=== PATIENT | male | born 2000 | race Caucasian/White ===

== ENCOUNTER → 2022-01-31 | Outpatient (CLI) | payer OTHER, SELFPAY ==
[2022-01-31 15:45] LABS: Absolute Lymphocyte Count 3.52 X10^3/uL (0.83-4.51); Absolute Neutrophil Count 4.1 X10^3/uL (2.0-7.7); Basophil# 0.06 X10^3/uL; Basophil% 0.7 % (0-1); Eosinophil# 0.17 X10^3/uL; Hematocrit 45.3 % (40-54); Hemoglobin 15.8 g/dL (13.0-16.5); Lymphocyte # 3.52 X10^3/ul (0.83-4.51); Lymphocyte % 41.7 % (19-41); Mean Corp Hgb Conc 34.9 g/dL (32-36); Mean Corpuscular Hgb 28.5 pg (27.0-32.0); Mean Corpuscular Volume 81.8 fL (80-94); Mean Platelet Vol. 11.5 fl (6.2-12.0); Monocyte# 0.63 X10^3/uL; Monocyte% 7.5 % (0-10); NRBC Flagged by Analyzer 0 % (0-5); Neutrophil # 4.05 X10^3/uL (2.7-7.7); Neutrophil % 47.9 % (47-70); Platelet Count 215 K/mm3 (150-450); RBC Distribution Width CV 12.7 % (11.6-14.6); RBC Distribution Width SD 37.6 fl (35.1-43.9); Red Blood Count 5.54 M/mm3 (4.6-6.2); White Blood Count 8.5 K/mm3 (4.4-11.0)
[2022-01-31 16:01] LABS: ALB/GLOB Ratio 1.2 RATIO (0.9-2.4); AST(SGOT) 16 U/L (15-37); Alanine Aminotransfer ALT/SGPT 25 U/L (16-61); Albumin, Serum 4.1 g/dL (3.2-5.0); Alkaline Phosphatase 60 U/L (45-117); Anion Gap 6 (5-15); BUN 13 mg/dL (7-18); BUN/Creat Ratio 13.4 RATIO (10-20); Calcium,Total 9.1 mg/dL (8.5-10.1); Chloride 105 mmol/L (98-107); Creatinine, Serum 0.97 mg/dL (0.70-1.30); EST Glomerular Filtration Rate 102 mL/min (>60); Est Glom Filt Rate - Afr Amer 124 mL/min (>60); Globulin 3.5 g/dL (2.2-4.2); Glucose 110 mg/dL (74-106); Potassium 4.2 mmol/L (3.5-5.1); Protein, Total 7.6 g/dL (6.4-8.2); Sodium Level 139 mmol/L (136-145)
== END | disposition home or self-care (01) ==
LOC: MFPLAB 11:24
PROVIDERS: Visit Provider Family Medicine
DX: R19.5 Other fecal abnormalities (principal)
CPT/HCPCS: 36415; 80053; 85025

== ENCOUNTER → 2022-05-06 | Outpatient (CLI) | payer OTHER, SELFPAY ==
--- NOTE | 2022-05-06 16:00 | CT_ITS ---
STUDY: CTA OF THE ABDOMINAL AORTA REASON FOR EXAM: Male, 21 years old. Rectal bleeding. RADIATION DOSAGE (If Supplied By Facility): CTDIvol = ( 14.98 ) mGy, DLP = ( 1138.08 ) mGycm TECHNIQUE: Axial CT angiography multi-detector data acquisition was obtained from the diaphragm to the ischial tuberosity following intravenous administration of 100ML OF ISOVUE 370. Axial images and MIP images were reconstructed from the axial data set. Post-processing of the angiographic images was performed, with multiplanar reformation and 3D reconstruction. Individualized dose optimization techniques were used for this CT. TECHNICAL QUALITY: Good COMPARISON: None. Descriptors of Narrowing: None (0%) Mild (< 50%) Moderate (50-70%) Severe (70-90%) Subtotal/Total Occlusion (90-100%) Non-Evaluable (technically non-diagnostic FINDINGS: Abdominal aorta: No demonstrated narrowing. Celiac and superior mesenteric arteries: No demonstrated narrowing. Inferior mesenteric artery: No demonstrated narrowing. Right renal artery(arteries): No demonstrated narrowing. Left renal artery(arteries): No demonstrated narrowing. Right common iliac artery: No demonstrated narrowing. Right external iliac artery: No demonstrated narrowing. Right internal iliac artery: No demonstrated narrowing. Left common iliac artery: No demonstrated narrowing. Left external iliac artery: No demonstrated narrowing. Left internal iliac artery: No demonstrated narrowing. Lung bases are clear. The heart is normal in size. Normal liver. Normal gallbladder and biliary ductal system. Normal spleen. Normal pancreas. Normal adrenal glands. Normal kidneys. Normal visualized ureters. Normal IVC and retroperitoneum. Normal stomach. Normal small bowel. Normal colon. Normal appendix. There is no visualized extravasation of contrast in the bowel lumen suggest active GI bleed. Normal urinary bladder. Normal prostate. No pelvic lymphadenopathy. No free air or free fluid is seen within the peritoneal cavity. Normal abdominal wall. Normal osseous structures. CT/CT ANGIO ABD&PEL W/O&W/DYE IMPRESSION: 1. Normal abdominal aorta and intra-abdominal vasculature. 2. No evidence of active GI bleed or other gross GI abnormality. Electronically Signed: Ivan Perkins DO at 22:17 EDT Reading Location ID and State: [address] [place] [address] Tel [phone], Service support ,
== END | disposition home or self-care (01) ==
LOC: CT 15:44
PROVIDERS: PCP Family Medicine; Referring Provider Internal Medicine Gastroenterology; Visit Provider Internal Medicine Gastroenterology
DX: K62.5 Hemorrhage of anus and rectum (principal)
CPT/HCPCS: 74174; Q9967

== ENCOUNTER 2022-06-24 05:25 | Day surgery (SDC) | payer OTHER, SELFPAY ==
--- NOTE | 2022-06-24 | COLBX_PTH ---
PATIENT: BRIAN MACHADO LOC: EN U#:[id number] AGE/SX: 21/M ROOM: RE06/24/[address]: Dr. Miguel Gomez DO : 2000 BED: DIS: 06/24/2022 SPEC #: [id number] RECD: 06/24/22 11:56 STATUS: NATALIE REYesenia #: [id number] YENY: 06/24/22 00:[address]: Miguel Gomez DEPT: SURGICAL PATHOLOGY RECD BY: Bladimir Bingham ENTERED: 06/24/22 11:57 SP TYPE: COLON BX OTHR DR: Dr. Darin Clarke MD Tissues: A - Ileum, NOS B - COLON BIOPSY Procedures: Surgery Specimen Level IV HEADER OPERATION: Colonoscopy PRE-OP DIAGNOSIS: Bright red blood per rectum TISSUE SUBMITTED: A ? Terminal ileum biopsy, B ? Random colon biopsies MICROSCOPIC DIAGNOSIS A. Terminal ileum, biopsy: Fragments of small intestinal mucosa, no pathologic diagnosis. B. Colon, random biopsy: Focal minimal acute colitis. See comment. TR:portillo 06/25/2022 COMMENT B. Focal minimal cryptitis is noted. Crypt abscesses, glandular distortion or granulomas are not seen. Correlation with clinical, radiologic findings and appropriate follow up are necessary. MICROSCOPIC DESCRIPTION Slides are reviewed. GROSS DESCRIPTION A - Received in fixative is one container labeled with the patient's name and designated terminal ileum biopsy. The specimen consists of multiple irregular fragments of light argueta soft tissue that in aggregate measure 0.8 x 0.4 x 0.1 cm. The specimen is totally submitted in one cassette. B - Received in fixative is one container labeled with the patient's name and designated random colon biopsy. The specimen consists of multiple irregular fragments of light argueta soft tissue that in aggregate measure 2 x 0.5 x 0.1 cm. The specimen is totally submitted in one cassette. / TR:portillo 06/24/2022 TC:2 CPT: 94091 x2
[2022-06-24] MEDS: Lactated Ringers 1,000 ML 15 ML IV (05:45)
[2022-06-24 06:02] VITALS: BP 146/85; PULSE 79; RESP 17; TEMP 37.5; O2SAT 99; BMI 33.3
--- NOTE | 2022-06-24 06:36 | PCM.HP.BLA ---
History and Physical Date of Admission: 06/24/22 WILL MACAHDO, is a 21 M who presents to the office today for Initial consult. Will established with this clinic 04.24.22 with referral from PCP for blood in stool. First seen June 2021 with three subsequent episodes each occurring in a singular fashion. [place] stool scale 4. Denies abdominal pain, burning, regurgitation, nausea, bloating or emesis. ? FH does not include UC or Crohn?s disease, or colon cancer. Biochemical workup - without any pertinent abnormalities Denies any other symptoms with the blood in stool. Denies any changes in bowel movements. States that he has had one previous episode of rectal bleeding in 2018. Denies any PMH of GI related illness. Denies ever getting a colonoscopy. ROS Const Constitutional: No fatigue, fever(s), frequent falls, headache(s) or weight change ENT ENT: No headache(s) or difficulty swallowing Cardio Cardiology: No leg pain with exertion Gastro GI: Positive for Blood in stool; No abdominal pain, bloating, change in bowel habits, constipation, diarrhea, heartburn, difficulty swallowing, Vomiting blood/hematemesis, nausea/dyspepsia or vomiting Musc Musculoskeletal: No abnormal gait, joint pain, back pain, joint swelling, muscle cramps, muscle weakness, numbness, stiffness, tingling, Arthritis, sciatica, leg pain at night or leg pain with exertion Skin Skin: No dry skin, lesions, itchy eyes or rash Neuro Neurology: No abnormal gait, dizziness, frequent falls, headache(s), numbness, tingling, tremor(s), Increased tone in limbs, paralysis or seizures Psych Psychiatric: No anxiety, No depression, No paranoia, No Behavioral Problems, No Compulsive Behavior, No hyperactivity, No inattentiveness, No obsessions/compulsions, Positive for Temper Tantrums and No suicidal ideation Endo Endocrine: No fatigue or weight change Aller/Imm Allergy/Immunologic: No itchy eyes Bautista/Lymp Hematologic/Lymphatic: No easy bleeding or easy bruising Exam Const General: cooperative and comfortable Nutritional Appearance: average body habitus and well nourished HENOK Head: normal to inspection Ears: hearing grossly normal bilaterally Nose: external nose normal Face and sinus: normal facial exam Mouth: oral mucosae normal Throat: posterior oropharynx normal Eyes General: appearance normal, both eyes and all related structures Neck Neck: normal visual inspection Chest Chest palpation & inspection: normal inspection of the chest and normal palpation of entire chest wall Resp Effort & Inspection: normal respiratory effort Auscultation: Bilateral: Clear to Auscultation Cardio Palpation: normal PMI Rate: regular rate Rhythm: regular rhythm GI Inspection: normal to inspection Auscultation: normal bowel sounds Percussion: normal to percussion Palpation: no hepatosplenomegaly Skin General: no rashes or lesions noted Neuro General: patient alert Extrem General: normal to inspection Psych Affect: normal affect Quality Reporting Tobacco Screening ([facility] 138) Smoking Status: Never smoker Assessment and Plan Assessment and Plan (1) Bright red blood per rectum: ?Status:?Acute ?Plan: He has dilated rectal veins and varicose veins.? It makes me think about?lower extremity venous diseases or insufficiency include clinically deteriorating conditions with morphological and functional alterations of the venous system, including venous hypertension, vascular wall structural abnormality, and venous valvar incompetency in association with an inflammatory process.? We will perform a colonoscopy to evaluate his rectal Schmid with endoscopy for the etiology of his bleeding.? We will also get a CT angio of the abdomen pelvis to look for signs of angiodysplasia that can be contributing to venous insufficiency. ? ? ? Orders: Orders CT ANGIO ABD&PEL W/O&W/DYE Today K62.5 - Hemorrhage of anus and rectum ? I have examined the patient and the H&P has been reviewed. There are no clinical changes since date of exam.
[2022-06-24 07:00] VITALS: BP 146/85; BP 95/55; PULSE 61; RESP 16; TEMP 36.7; O2SAT 94
--- NOTE | 2022-06-24 07:03 | OP.COLON_ITS ---
Patient Name: Will Garrison Procedure Date: 06/24/2022 6:05 AM Date of : 2000 Age: 21 Procedure: Colonoscopy Indications: Hematochezia Providers: DO Shonda Stewart MD: Darin Clarke Medicines: Monitored Anesthesia Care Patient Profile: This is a 21 year old male. Refer to note in patient chart for documentation of history and physical. Last Colonoscopy: none. The patient's first colonoscopy is today. Complications: No immediate complications. Procedure: Pre-Anesthesia Assessment: - Prior to the procedure, a History and Physical was performed, and patient medications and allergies were reviewed. The risks and benefits of the procedure and the sedation options and risks were discussed with the patient. All questions were answered and informed consent was obtained. Patient identification and proposed procedure were verified by the physician in the pre-procedure area. Mental Status Examination: alert and oriented. Airway Examination: normal oropharyngeal airway and neck mobility. Respiratory Examination: clear to auscultation. CV Examination: normal. Prophylactic Antibiotics: The patient does not require prophylactic antibiotics. Prior Anticoagulants: The patient has taken no previous anticoagulant or antiplatelet agents. After reviewing the risks and benefits, the patient was deemed in satisfactory condition to undergo the procedure. The anesthesia plan was to use monitored anesthesia care (MAC). Immediately prior to administration of medications, the patient was re-assessed for adequacy to receive sedatives. The heart rate, respiratory rate, oxygen saturations, blood pressure, adequacy of pulmonary ventilation, and response to care were monitored throughout the procedure. The physical status of the patient was re-assessed after the procedure. After I obtained informed consent, the scope was passed under direct vision. Throughout the procedure, the patient's blood pressure, pulse, and oxygen saturations were monitored continuously. The colonoscope was introduced through the anus and advanced to the terminal ileum. The colonoscopy was performed without difficulty. The patient tolerated the procedure well. The quality of the bowel preparation was good. Scope In: 6:41:27 AM Scope Withdrawal Time 0 hours 11 minutes 18 seconds Scope Out: 6:55:50 AM Total Procedure Duration Time 0 hours 14 minutes 23 seconds Findings: An anal fissure was found on perianal exam. An area of mildly congested mucosa was found in the rectum, in the sigmoid colon and at the hepatic flexure. Biopsies were taken with a cold forceps for histology. Verification of patient identification for the specimen was done. Estimated blood loss was minimal. The terminal ileum appeared normal. Biopsies were taken with a cold forceps for histology. Verification of patient identification for the specimen was done. Estimated blood loss was minimal. Impression: - Anal fissure found on perianal exam. - Congested mucosa in the rectum, in the sigmoid colon and at the hepatic flexure. Biopsied. - The examined portion of the ileum was normal. Biopsied. Recommendation: - Discharge patient to home. - Resume previous diet. - Continue present medications. - Await pathology results. - Repeat colonoscopy for surveillance based on pathology results. - Use hydrocortisone suppository 25 mg 1 per rectum once a day for 3 weeks. Procedure Code(s): --- Professional --- 12467, Colonoscopy, flexible; with biopsy, single or multiple CPT copyright 2017 [employer]. All rights reserved. The codes documented in this report are preliminary and upon harp maker review may be revised to meet current compliance requirements. Miguel Gomez DO 06/24/2022 7:03:00 AM This report has been signed electronically. Number of Addenda: 0 Note Initiated On: 06/24/2022 6:05 AM
--- NOTE | 2022-06-24 07:04 | OP.CCLET_ITS ---
06/24/2022 Darin Clarke [address] [place] [address] Re : Colonoscopy procedure for Will Barbozakellie Dear Dr. Clarke This procedure was performed on Friday, June 24, 2022. My impressions and recommendations are as follows: Impressions : - Anal fissure found on perianal exam. - Congested mucosa in the rectum, in the sigmoid colon and at the hepatic flexure. Biopsied. - The examined portion of the ileum was normal. Biopsied. Recommendations : - Discharge patient to home. - Resume previous diet. - Continue present medications. - Await pathology results. - Repeat colonoscopy for surveillance based on pathology results. - Use hydrocortisone suppository 25 mg 1 per rectum once a day for 3 weeks. My findings are described in the full procedure note, which is enclosed. If I can be of further assistance, please feel free to contact me at . Sincerely, Miguel Gomez, 06/24/2022 7:03:00 AM This report has been signed electronically.
[2022-06-24 07:05] VITALS: BP 146/85; BP 94/83; PULSE 57; RESP 16; O2SAT 98
[2022-06-24 07:10] VITALS: BP 103/51; BP 146/85; PULSE 60; RESP 16; O2SAT 99
[2022-06-24 07:15] VITALS: BP 102/60; BP 146/85; PULSE 60; RESP 16; TEMP 37.1; O2SAT 99
[2022-06-24 07:33] VITALS: BP 146/85
== END 2022-06-24 07:43 | disposition home or self-care (01) ==
LOC: EN 05:25 → AC 05:27
PROVIDERS: PCP Family Medicine; Referring Provider Family Medicine; Visit Provider Internal Medicine Gastroenterology
PROC: 0DJD8ZZ Inspection of Lower Intestinal Tract, Via Natural or Artificial Opening Endoscopic (ICD-10-PCS; CPT 45378; principal; 2022-06-24 06:25)
DX: K52.9 Noninfective gastroenteritis and colitis, unspecified (principal); K60.2 Anal fissure, unspecified
CPT/HCPCS: 45380; 88305; J7120; J2405

== ENCOUNTER → 2022-06-30 | Outpatient (CLI) | payer OTHER, SELFPAY ==
[2022-06-30 13:59] LABS: Erythrocyte Sedimentation Rate 6 mm/hr (0-20)
[2022-06-30 14:01] LABS: Absolute Lymphocyte Count 2.24 X10^3/uL (0.83-4.51); Absolute Neutrophil Count 5.3 X10^3/uL (2.0-7.7); Basophil# 0.06 X10^3/uL; Basophil% 0.7 % (0-1); Eosinophil# 0.13 X10^3/uL; Eosinophils% 1.5 % (0-5); Hemoglobin 16.7 g/dL (13.0-16.5); Lymphocyte # 2.24 X10^3/ul (0.83-4.51); Lymphocyte % 26.3 % (19-41); Mean Corp Hgb Conc 34.8 g/dL (32-36); Mean Corpuscular Volume 80.4 fL (80-94); Mean Platelet Vol. 11.2 fl (6.2-12.0); Monocyte# 0.77 X10^3/uL; NRBC Flagged by Analyzer 0 % (0-5); Neutrophil # 5.26 X10^3/uL (2.7-7.7); Neutrophil % 61.9 % (47-70); Platelet Count 225 K/mm3 (150-450); RBC Distribution Width CV 12.4 % (11.6-14.6); RBC Distribution Width SD 35.7 fl (35.1-43.9); Red Blood Count 5.97 M/mm3 (4.6-6.2); White Blood Count 8.5 K/mm3 (4.4-11.0)
[2022-06-30 14:27] LABS: AST(SGOT) 9 U/L (15-37); Alanine Aminotransfer ALT/SGPT 26 U/L (16-61); Albumin, Serum 4.2 g/dL (3.2-5.0); Alkaline Phosphatase 63 U/L (45-117); Anion Gap 7 (5-15); BUN 10 mg/dL (7-18); BUN/Creat Ratio 10.4 RATIO (10-20); CRP < 2.90 mg/L (0.0-3.0); Calcium,Total 9.6 mg/dL (8.5-10.1); Chloride 106 mmol/L (98-107); Creatinine, Serum 0.96 mg/dL (0.70-1.30); EST Glomerular Filtration Rate 103 mL/min (>60); Est Glom Filt Rate - Afr Amer 125 mL/min (>60); Glucose 95 mg/dL (74-106); LDH 151 U/L (87-241); Potassium 4.1 mmol/L (3.5-5.1); Protein, Total 8.2 g/dL (6.4-8.2); Sodium Level 140 mmol/L (136-145)
[2022-07-02 15:08] LABS: Anti-Centromere B Ab <0.2 AI (0.0-0.9); Anti-Chromatin <0.2 AI (0.0-0.9); Anti-Jo <0.2 AI (0.0-0.9); Anti-Scleroderma-70 AB <0.2 AI (0.0-0.9); Endomysial Antibody IgA Negative (Negative); RNP Ab <0.2 AI (0.0-0.9); SJOGREN'S Anti-SS-A test < 0.2 AI (0.0-0.9); SJOGREN'S Anti-SS-B test < 0.2 AI (0.0-0.9); Smith Ab <0.2 AI (0.0-0.9)
[2022-07-02 16:23] LABS: Anti-dsDNA Ab 2 IU/mL (0-9); Immunoglobulin A 349 mg/dL (90-386); t-Transglutaminase IgA <2 U/mL (0-3)
[2022-07-04 10:29] LABS: Calprotectin, Stool <16 ug/g (0-120)
[2022-07-05 10:08] LABS: Albumin 4.6 g/dL (2.9-4.4); Alpha-1-Globulins 0.2 g/dL (0.0-0.4); Alpha-2-Globulins 0.5 g/dL (0.4-1.0); Cytoplasmic Ab (C-ANCA) <1:20 titer (Neg:<1:20); Gamma Globulin 1.3 g/dL (0.4-1.8); Immunoglobulin A 326 mg/dL (90-386); Immunoglobulin E 81 IU/mL (6-495); Immunoglobulin G 1150 mg/dL (603-1613); Immunoglobulin M 126 mg/dL (20-172); PROEL- TOTAL PROTEIN 7.8 g/dL (6.0-8.5)
[2022-07-08 11:48] LABS: Perinuclear Ab (P-ANCA) <1:20 titer (Neg:<1:20)
== END | disposition home or self-care (01) ==
PROVIDERS: PCP Family Medicine; Referring Provider Internal Medicine Gastroenterology; Visit Provider Internal Medicine Gastroenterology
DX: K52.9 Noninfective gastroenteritis and colitis, unspecified (principal)
CPT/HCPCS: 36415; 80053; 82784; 82785; 83516; 83615; 83630; 83993; 84165; 85025; 85652; 86140; 86225; 86235; 86255; 86256; 86334

== ENCOUNTER 2022-08-19 12:26 | Emergency (ER) | payer OTHER, SELFPAY ==
[2022-08-19 12:27] VITALS: BP 136/76; PULSE 92; RESP 16; TEMP 36.4; O2SAT 98; BMI 34.4
--- NOTE | 2022-08-19 13:54 | CT_ITS ---
STUDY: CT BRAIN WITHOUT CONTRAST REASON FOR EXAM: Male, 22 years old. Headache RADIATION DOSAGE (If Supplied By Facility): CTDIvol = ( 44.99 ) mGy, DLP = ( 782.05 ) mGycm TECHNIQUE: Transaxial CT imaging of the brain was performed without administration of intravenous contrast material. Individualized dose optimization techniques were used for this CT. COMPARISON: No relevant priors. FINDINGS: Normal soft tissue structures. Normal calvarium. Normal size ventricles and extra-axial spaces for the patient''s age. Normal white matter tracts of the cerebral hemispheres. Normal basal ganglia and thalami. Normal brainstem. Normal cerebellum. There is no intracranial hemorrhage. There are no findings of an acute ischemic infarction. Minimal mucosal thickening along the inferior aspect of the left maxillary sinus. CT/Brain/Head without Contrast IMPRESSION: Normal unenhanced CT scan of the brain. Electronically Signed: Francesco Mtz MD at 14:40 EST ,
[2022-08-19] MEDS: Metoclopramide 10 MG/2 ML Vial IV (14:15)
[2022-08-19] MEDS: DiphenhydrAMINE 50 MG/ML Syringe 25 MG IV (14:15)
[2022-08-19 14:32] LABS: Absolute Lymphocyte Count 1.66 X10^3/uL (0.83-4.51); Basophil# 0.05 X10^3/uL; Basophil% 0.4 % (0-1); Eosinophil# 0.11 X10^3/uL; Eosinophils% 0.9 % (0-5); Hematocrit 51.1 % (40-54); Hemoglobin 17.6 g/dL (13.0-16.5); Lymphocyte # 1.66 X10^3/ul (0.83-4.51); Mean Corp Hgb Conc 34.4 g/dL (32-36); Mean Corpuscular Hgb 27.8 pg (27.0-32.0); Mean Corpuscular Volume 80.9 fL (80-94); Mean Platelet Vol. 10.3 fl (6.2-12.0); Monocyte# 0.94 X10^3/uL; Monocyte% 7.9 % (0-10); NRBC Flagged by Analyzer 0 % (0-5); Neutrophil # 9.03 X10^3/uL (2.7-7.7); Neutrophil % 76.2 % (47-70); Platelet Count 276 K/mm3 (150-450); RBC Distribution Width CV 12.3 % (11.6-14.6); RBC Distribution Width SD 35.7 fl (35.1-43.9); Red Blood Count 6.32 M/mm3 (4.6-6.2); White Blood Count 11.9 K/mm3 (4.4-11.0)
[2022-08-19 14:43] LABS: ALB/GLOB Ratio 0.8 RATIO (0.9-2.4); AST(SGOT) 9 U/L (15-37); Alanine Aminotransfer ALT/SGPT 28 U/L (16-61); Albumin, Serum 3.9 g/dL (3.2-5.0); Alkaline Phosphatase 65 U/L (45-117); Anion Gap 9 (5-15); BUN 21 mg/dL (7-18); BUN/Creat Ratio 20.6 RATIO (10-20); Calcium,Total 9.4 mg/dL (8.5-10.1); Chloride 105 mmol/L (98-107); Creatinine, Serum 1.02 mg/dL (0.70-1.30); EST Glomerular Filtration Rate 96 mL/min (>60); Est Glom Filt Rate - Afr Amer 116 mL/min (>60); Estimated Creatinine Clearance 112.63 ml/min; Globulin 4.6 g/dL (2.2-4.2); Glucose 93 mg/dL (74-106); Potassium 4.2 mmol/L (3.5-5.1); Protein, Total 8.5 g/dL (6.4-8.2); Sodium Level 140 mmol/L (136-145)
--- NOTE | 2022-08-19 14:58 | EDS_ITS ---
HPI History of Present Illness Chief Complaint: Numb/Ting Informant: patient Onset/Context/Timing Onset: Today Context: Sudden Onset Timing: Intermittent Quality: Tingling Location: Right forearm and hand Worsened by: Nothing Relieved by: Nothing Narrative Narrative: Please ask with paresthesias to his right arm and right side of his face that began today. Patient states that these have been intermittent. Patient states that it started in his right forearm and hand. Patient states that that resolved and then he noted paresthesias on the right side of his face. Patient states those resolved after several minutes and he noted some paresthesias in his right thumb again. Patient denies any paresthesias of his right leg. Patient admits to a dull headache. Patient states his headache is worse with flashes of light. Patient states nothing seems to help with his headache or his paresthesias. Patient did have vein surgery on his right leg 6 days ago. Patient denies any fevers or chills. Patient denies any chest pain or shortness of breath. [facility] Medical History Alcohol use Blood in stool History of edema History of GI bleed Non-smoker Positive fecal occult blood test Varicose vein of leg Home Medications Hydrocortisone 2.5%/lidocaine 5% suppository (cmpd) (hydrocortisone 2.5%/lidocaine 5% suppository (compound)) #42 ea 06/25/22 [Rx Last Taken Unknown] Allergy/AdvReac Type Severity Reaction Status Date / Time No Known Allergies Allergy Verified 08/19/22 12:27 Family History (System 07/10/22 @ 13:26 by Julia Mai) Grandmother Breast cancer Father Anxiety Sister Anxiety Grandfather Arthritis Cancer Surgical History History of tonsillectomy Hx of wisdom tooth extraction Social History Smoking Status: Never smoker alcohol intake: current alcohol intake frequency: a few times a week Alcohol type: beer, wine and hard liquor substance use type: does not use caffeine: Yes Type: carbonated beverages what type of physical activity do you participate in: none ROS ROS ED Constitutional Constitutional ED: Denies chills or fever(s) Eyes Eyes: Denies blurry vision or change in vision ENT ENT ED: Denies rhinorrhea or sore throat Cardiovascular Cardiovascular: Denies chest pain or palpitations Respiratory/Chest Respiratory/Chest: Denies cough or dyspnea Gastrointestinal Gastrointestinal: Reports nausea; Denies vomiting Genitourinary Genitourinary ED: Reports urinary frequency; Denies dysuria or hematuria Musculoskeletal Musculoskeletal: Denies back pain or neck pain Integumentary Denies abscess or rash Neurologic Neurologic: Reports headache(s); Denies weakness Allergic/Immunologic Allergic/Immunologic ED: Denies mouth swelling or urticaria EXAM Physical Exam Const Vital Signs: 08/19/22 12:27 Temperature 97.6 F L Temperature Source Temporal Pulse Rate 92 Respiratory Rate 16 Blood Pressure 136/76 H Blood Pressure Mean 96 Pulse Ox 98 Oxygen Delivery Method Room Air Positive well nourished and well developed General Appearance ED: well developed HEENT Reports moist mucous membranes Neck supple and no JVD Resp normal respiratory effort and clear to auscultation bilaterally Cardio regular rate, regular rhythm and no murmurs GI normal to inspection, nondistended, normoactive bowel sounds and non-tender Palpation: soft Extremity normal to inspection General Extremety ED: Negative for edema or tenderness General Extremity: Negative for edema Neuro oriented x3, CN's II-XII intact bilaterally and no sensory deficits noted Sensorium / Orientation: alert Motor Exam: strength 5/5 throughout Psych mental status grossly normal Skin no rashes or lesions noted MDM MDM MDM Narrative Medical decision making narrative: Patient was given Reglan and Benadryl here. CBC was obtained and was reviewed. There is a mild leukocytosis of 11.9. Hemoglobin was slightly elevated at 17.6. The remainder is within normal limits. Comprehensive metabolic profile was obtained. BUN was minimally elevated at 21. Creatinine was normal. Electrolytes were normal. Anion gap was normal. Liver function tests were normal. CT scan of the brain was obtained. There is no acute intracranial abnormality. This was interpreted by the radiologist. This was also independently reviewed by myself. On reevaluation, patient feels better. Patient states his headache has resolved. Patient has no paresthesias. Patient was advised of his findings. Patient was instructed to drink plenty of fluids. Patient was instructed to follow-up with his primary care physician in 5 to 7 days. Patient understood and was agreeable with the plan. All questions were answered. Lab Data Attestation: I reviewed the patient's lab results. Labs: Laboratory Results - last 24 hr 08/19/22 08/19/22 14:20 14:20 WBC 11.9 H RBC 6.32 H Hgb 17.6 H Hct 51.1 MCV 80.9 MCH 27.8 MCHC 34.4 RDW Std Deviation 35.7 RDW Coeff of [place]mer 12.3 Plt Count 276 MPV 10.3 Immature Gran % (Auto) 0.600 Neut % (Auto) 76.2 H Lymph % (Auto) 14.0 L Starke % (Auto) 7.9 Eos % (Auto) 0.9 Baso % (Auto) 0.4 Absolute Neuts (auto) 9.0 H Absolute Lymphs (auto) 1.66 Nucleated RBC % 0 Sodium 140 Potassium 4.2 Chloride 105 Carbon Dioxide 26.0 Anion Gap 9 BUN 21 H Creatinine 1.02 Estim Creat Clear Calc 112.63 Est GFR (MDRD) Af Amer 116 Est GFR (MDRD) Non-Af 96 BUN/Creatinine Ratio 20.6 H Glucose 93 Calcium 9.4 Total Bilirubin 0.50 AST 9 L ALT 28 Alkaline Phosphatase 65 Total Protein 8.5 H Albumin 3.9 Globulin 4.6 H Albumin/Globulin Ratio 0.8 L Radiography Diagnostic Testing: Clinical Impression(s) from Imaging Studies Brain CT 08/19/22 13:54 IMPRESSION: Normal unenhanced CT scan of the brain. Electronically Signed: Francesco Mtz MD at 14:40 EST Reading Location ID and State: [facility] / [place] , Service support , Discharge Plan Triage Chief Complaint: Numb/Ting ED Provider: Jarvis Jang Dx/Rx/DC Orders Clinical Impression: Headache, migraine, Paresthesias Instructions: ED, Migraine (Classical), ED Paraesthesias Prescriptions: No Action (DME) hydrocortisone 2.5%/lidocaine 5% suppository (compound) Suppository See Rx Instructions .Route Qty: 42 0RF Rx Instructions: insert one two times a day Primary Care Provider: Darin Clarke Referrals: Darin Clarke MD [Primary Care Provider] - 5-7 Days Disposition Disposition: Home, Self Care
== END 2022-08-19 15:31 | disposition home or self-care (01) ==
PROVIDERS: Emergency Provider Emergency Medicine; PCP Family Medicine; Visit Provider Emergency Medicine
DX: G43.909 Migraine, unspecified, not intractable, without status migrainosus (principal); R20.2 Paresthesia of skin; R20.0 Anesthesia of skin
CPT/HCPCS: 70450; 80053; 85025; 96374; 96375; 99283

== ENCOUNTER → 2023-01-05 | Outpatient (CLI) | payer SELFPAY ==
[2023-01-05 15:49] LABS: Erythrocyte Sedimentation Rate 4 mm/hr (0-20)
[2023-01-05 15:51] LABS: CRP < 2.90 mg/L (0.0-3.0)
== END | disposition home or self-care (01) ==
PROVIDERS: PCP Family Medicine; Referring Provider Internal Medicine Gastroenterology; Visit Provider Internal Medicine Gastroenterology
DX: K52.9 Noninfective gastroenteritis and colitis, unspecified (principal)
CPT/HCPCS: 36415; 85652; 86140